=== PATIENT | male | born 1985 | race Caucasian/White ===

== ENCOUNTER 2017-10-05 20:01 | Emergency (ER) | payer MEDICAID ==
[~2017-10-05] VITALS: Ht 172.7 cm; Wt 65.8 kg
[2017-10-05 20:08] VITALS: BP 125/75
--- NOTE | 2017-10-05 20:18 | NUR ---
PT TAKEN TO BED 3
[2017-10-05] MEDS ORDERED: AZITHROMYCIN 500 MG in DEXTROSE 5% 250 ML IV ONE (20:25)
[2017-10-05] MEDS ORDERED: cefTRIAXone 500 MG in DEXT 5% MINI-BAG PLUS 50 ML IV ONE (20:25)
[2017-10-05] MEDS ORDERED: ALBUTEROL 0.083% 2.5 MG/3 ML NEBU INH ONE (20:25)
[2017-10-05] MEDS ORDERED: ACETAMINOPHEN EXTRA STRENGTH 500 MG TAB PO ONE (20:25)
--- NOTE | 2017-10-05 20:30 | NUR ---
32 Y/O M W/C/O PRESISTENT COUGH, FEVER, CHILLS, CHEST/BACK PAIN X 1 WK GETTING WORSE. ON MONITOR, VSS. ER MADE AWARE.
--- NOTE | 2017-10-05 20:37 | NUR ---
LUZMA RODRIGUEZ AT BEDSIDE EVALUATING PT.
[2017-10-05] MEDS ORDERED: AZITHROMYCIN 500 MG INJ VIAL IV ONE (20:41)
[2017-10-05] MEDS ORDERED: cefTRIAXone 500 MG VIAL ONE (20:41)
[2017-10-05 21:07] LABS: RED CELL DISTRIBUTION WIDTH 12.7 % (11.6-13.7); WHITE BLOOD COUNT (AUTO) 5.4 K/uL (4.8-10.8)
[2017-10-05 21:12] LABS: HEMATOCRIT 50.9 % (36-52); HEMOGLOBIN 16.7 g/dL (12.0-18.0); MEAN CORPUSCULAR HEMOGLOBIN 30 pg (27-31); MEAN CORPUSCULAR HGB CONC 33 g/dL (33-37); MEAN CORPUSCULAR VOLUME 90 fL (80-94); PLATELET COUNT (AUTO) 114 K/uL (140-450); RED BLOOD CELL COUNT(AUTO) 5.68 MIL/uL (4.20-6.10)
[2017-10-05 21:24] LABS: ALBUMIN 4.1 g/dL (3.4-5.0); ANION GAP 13.9 (8-16); CREATININE 1.3 mg/dL (0.7-1.3); POTASSIUM 3.9 mmol/L (3.5-5.1); TOTAL BILIRUBIN 0.9 mg/dL (0.0-1.0)
[2017-10-05 21:26] LABS: LYMPHOCYTES % (MANUAL) 29 % (20-46); MONOCYTES % (MANUAL) 9 % (5-12)
[2017-10-05] MEDS ORDERED: KETOROLAC 30 MG/ML VIAL IVP ONE (22:05)
[2017-10-05] MEDS ORDERED: methylPREDNISolone SS 125 MG in WATER STERILE 2 ML IV ONE (22:05)
[2017-10-05] MEDS ORDERED: ONDANSETRON 4 MG/2 ML VIAL IVP ONE (22:05)
[2017-10-05] MEDS ORDERED: MORPHINE SULFATE 4 MG/ML SYR IVP ONE (22:05)
--- NOTE | 2017-10-05 22:28 | NUR ---
PT RESTING IN BED, ON MONITOR, VSS. FAMILY AT BEDSIDE.
[2017-10-05 22:54] LABS: APPEARANCE,URINE CLEAR (CLEAR); BILIRUBIN,URINE NEGATIVE (NEGATIVE); BLOOD, URINE TRACE-I (NEGATIVE); COLOR,URINE YELLOW (YELLOW); LEUKOCYTE ESTERASE ,URINE NEGATIVE (NEGATIVE); NITRITE, URINE NEGATIVE (NEGATIVE); UGLUCOSE NEGATIVE (NEGATIVE)
[2017-10-05 23:16] LABS: RBC,URINE 3-10 (FEW) /HPF (0-5); WBC,URINE 0-5 (RARE) /HPF (0-5)
[2017-10-05 23:30] VITALS: BP 104/68
--- NOTE | 2017-10-05 23:30 | NUR ---
DPatient discharged with v/s stable. Written and verbal after care instructions given and explained. Patient alert, oriented and verbalized understanding of instructions. Ambulatory with steady gait. All questions addressed prior to discharge. ID band removed. Patient advised to follow up with PMD IN 24 TO 48 HRS OR RETURN TO ER IF CONDITION WORSENS. Rx of ALBUTEROL INH, PREDNISONE, NORCO, AND AZITHROMAX given. Patient educated on indication of medication including possible reaction and side effects. Opportunity to ask questions provided and answered.
== END 2017-10-05 23:30 | disposition home or self-care (01) ==
LOC: MED 20:01
DX: J20.9 Acute bronchitis, unspecified (principal); R03.0 Elevated blood-pressure reading, without diagnosis of hypertension
CPT/HCPCS: 36415; 71010; 80053; 81001; 84484; 85025; 87040; 87804; 93005; 94640; 96365; 96367; 96375; 99285; J0456; J0696; J1885; J2270; J2405; J2930; J7060; J7613; Q0092